=== PATIENT | male | born 1965 | race Caucasian/White ===

== ENCOUNTER 2022-02-19 13:21 | Day surgery (SDCO) | payer OTHER ==
[~2022-02-19] VITALS: Ht 175.3 cm; Wt 81.9 kg
[~2022-02-19 13:21] MED LIST: BACTRIM DS TAB1 EACH PO
[2022-02-19 14:30] LABS: BASOPHIL 0.3 % (0-2); EOSINOPHIL 0 % (0-5); HCT 41.9 % (42.0-52.0); HGB 14.3 g/dl (13.2-18.0); MCH 29.4 pg (25.0-31.0); MCHC 34.1 g/dL (32.0-36.0); MCV 86.2 fL (78.0-100.0); MONOCYTE 4.8 % (0-12); MPV 9.4 fL (6.0-9.5); NEUTROPHIL 86.4 % (41-80); NRBC 0; PLT 281 K/uL (150-400); RBC 4.86 M/uL (4.70-6.00); RDW 12.5 % (11.5-14.0); WBC 14.2 K/uL (4.0-10.5)
[2022-02-19 14:36] LABS: INR 1.1 (0.9-1.2); PROTHROMBIN TIME 13.9 SECONDS (11.9-13.9); PTT 24.3 SECONDS (24.9-34.6)
[2022-02-19 14:44] LABS: ALBUMIN 3.8 g/dL (3.4-5.0); BILIRUBIN - TOTAL 0.6 mg/dL (0.2-1.0); BUN/CREAT RATIO (CALC) 21.6 RATIO; CREATININE 1.02 mg/dL (0.67-1.17); GLOBULIN (CALCULATION) 3.7 g/dL; POTASSIUM 4.3 mmol/L (3.5-5.1); TOTAL PROTEIN 7.5 g/dL (6.4-8.2)
--- NOTE | 2022-02-19 16:52 | NUR ---
RECEIVED FROM ER VIA STRETCHER. ORINETED TO ROOM AND MONITORS. ASSESSMENT AND ADMISSION COMPLETED
[2022-02-20 03:25] LABS: BASOPHIL 0.7 % (0-2); EOSINOPHIL 0.8 % (0-5); HCT 40.5 % (42.0-52.0); LYMPHOCYTE 25.7 % (15-48); MCH 29.7 pg (25.0-31.0); MCHC 34.6 g/dL (32.0-36.0); MCV 85.8 fL (78.0-100.0); MONOCYTE 7.9 % (0-12); MPV 9.4 fL (6.0-9.5); NEUTROPHIL 64.5 % (41-80); NRBC 0; PLT 233 K/uL (150-400); RBC 4.72 M/uL (4.70-6.00); RDW 12.7 % (11.5-14.0); WBC 8.4 K/uL (4.0-10.5)
[2022-02-20 03:52] LABS: ALBUMIN 3.3 g/dL (3.4-5.0); BILIRUBIN - TOTAL 0.4 mg/dL (0.2-1.0); BUN/CREAT RATIO (CALC) 20.4 RATIO; C-REACTIVE PROTEIN 1.5 mg/dL (<=0.90); CREATININE 1.03 mg/dL (0.67-1.17); POTASSIUM 3.7 mmol/L (3.5-5.1); TOTAL PROTEIN 6.3 g/dL (6.4-8.2)
[2022-02-20] MEDS ORDERED: ELIQUIS5 MG PO (09:02)
[2022-02-20] MEDS ORDERED: NORCO 5-325 TA1 EACH PO (09:02)
== END 2022-02-20 11:13 | disposition home or self-care (01) ==
LOC: FER 13:21 → FTCU 15:26
PROVIDERS: Emergency Medicine; Nurse Practitioner; ADMIT Internal Medicine
DX: I82.432 Acute embolism and thrombosis of left popliteal vein (principal); I82.412 Acute embolism and thrombosis of left femoral vein; I26.99 Other pulmonary embolism without acute cor pulmonale; K76.9 Liver disease, unspecified; E78.5 Hyperlipidemia, unspecified; Z86.16 Personal history of COVID-19
CPT/HCPCS: 36415; 80053; 80061; 83880; 84484; 85025; 85610; 85730; 86140; 93005; 94010; G0378; J1644; J1650